=== PATIENT | male | born 1955 | race Caucasian/White ===

== ENCOUNTER → 2020-08-26 | Outpatient (CLI) | payer OTHER ==
[~2020-08-26] MED LIST: ASPIRIN ADULT L81 M1 PO; ATORVASTATIN CA10 M1 PO; DOXYCYCLINE100 M3 PO; GABAPENTIN600 MG PO; GLIMEPIRIDE4 M1 PO; MECLIZINE HCL25 M2 PO; METFORMIN HYD1000 MG PO; NOVOLIN R100 UNIT/1 SQ; PANTOPRAZOLE SO40 MG PO; Percocet 325 MG1 TAB PO; SOLIQUA SC; STOOL SOFTENER100 M3 PO; ULTRAM50 MG PO; VITAMIN D350 MC2 PO; XARELTO10 MG PO
== END | disposition home or self-care (01) ==
LOC: LAB 13:03 → RAD 13:03
PROVIDERS: ATTEND Nurse Practitioner
DX: Z01.818 Encounter for other preprocedural examination (principal)

== ENCOUNTER → 2020-09-04 | Outpatient (CLI) | payer OTHER | END | disposition home or self-care (01) | LOC: COVID19 00:46 | PROVIDERS: ATTEND Podiatrist | DX: Z01.812 Encounter for preprocedural laboratory examination (principal); Z20.828 Contact with and (suspected) exposure to other viral communicable diseases ==

== ENCOUNTER → 2020-09-09 | Day surgery (SDC) | payer OTHER ==
[2020-09-04 13:47] VITALS: BP 128/88
[~2020-09-09] VITALS: Ht 182.8 cm; Wt 127.0 kg
[2020-09-09 06:35] VITALS: BP 160/95
[2020-09-09 10:40] VITALS: BP 138/71
[2020-09-09 10:55] VITALS: BP 128/62
[2020-09-09 11:10] VITALS: BP 126/64
[2020-09-09 11:25] VITALS: BP 125/64
[2020-09-09 11:40] VITALS: BP 128/75
== END ==
LOC: SDC 09-04 13:15
PROVIDERS: ATTEND Podiatrist
DX: M20.31 Hallux varus (acquired), right foot (principal); M19.071 Primary osteoarthritis, right ankle and foot; M24.574 Contracture, right foot; K21.9 Gastro-esophageal reflux disease without esophagitis; E11.40 Type 2 diabetes mellitus with diabetic neuropathy, unspecified; M19.90 Unspecified osteoarthritis, unspecified site; E78.5 Hyperlipidemia, unspecified; Z88.0 Allergy status to penicillin; Z88.5 Allergy status to narcotic agent; Z88.8 Allergy status to other drugs, medicaments and biological substances; Z79.899 Other long term (current) drug therapy

== ENCOUNTER 2020-09-18 16:01 | Emergency (ER) | payer OTHER ==
[~2020-09-18] VITALS: Ht 182.8 cm; Wt 127.0 kg
== END 2020-09-18 19:11 | disposition home or self-care (01) ==
LOC: ED 16:01
DX: G89.18 Other acute postprocedural pain (principal); Z88.0 Allergy status to penicillin; Z88.5 Allergy status to narcotic agent; Z79.899 Other long term (current) drug therapy; Z79.4 Long term (current) use of insulin

== ENCOUNTER → 2020-12-11 | Outpatient (CLI) | payer OTHER | END | disposition home or self-care (01) | LOC: RESCLI 14:39 | PROVIDERS: ATTEND Internal Medicine | DX: E11.42 Type 2 diabetes mellitus with diabetic polyneuropathy (principal); E78.2 Mixed hyperlipidemia; K21.9 Gastro-esophageal reflux disease without esophagitis; E55.9 Vitamin D deficiency, unspecified; I25.10 Atherosclerotic heart disease of native coronary artery without angina pectoris; K59.09 Other constipation; G62.9 Polyneuropathy, unspecified; N25.1 Nephrogenic diabetes insipidus; Z79.4 Long term (current) use of insulin; Z79.899 Other long term (current) drug therapy ==

== ENCOUNTER → 2020-12-14 | Outpatient (CLI) | payer OTHER ==
[2020-12-16 00:06] LABS: TESTOSTERONE FREE, (DIRECT) 3.2 pg/mL (6.6-18.1)
== END | disposition home or self-care (01) ==
LOC: LAB 10:44
PROVIDERS: Hospitalist; ATTEND Internal Medicine
DX: E11.42 Type 2 diabetes mellitus with diabetic polyneuropathy (principal); N52.1 Erectile dysfunction due to diseases classified elsewhere

== ENCOUNTER → 2021-03-25 | Outpatient (CLI) | payer OTHER | END | disposition home or self-care (01) | LOC: RESCLI 01:51 | PROVIDERS: ATTEND Internal Medicine | DX: E11.42 Type 2 diabetes mellitus with diabetic polyneuropathy (principal); E78.2 Mixed hyperlipidemia; K21.9 Gastro-esophageal reflux disease without esophagitis; E55.9 Vitamin D deficiency, unspecified; I25.10 Atherosclerotic heart disease of native coronary artery without angina pectoris; G62.9 Polyneuropathy, unspecified; N52.1 Erectile dysfunction due to diseases classified elsewhere; K59.09 Other constipation; Z79.4 Long term (current) use of insulin; Z79.899 Other long term (current) drug therapy; Z98.890 Other specified postprocedural states ==

== ENCOUNTER → 2021-06-25 | Outpatient (CLI) | payer OTHER | END | disposition home or self-care (01) | LOC: RESCLI 03:59 | PROVIDERS: ATTEND Internal Medicine | DX: R53.83 Other fatigue (principal); R06.83 Snoring; E11.42 Type 2 diabetes mellitus with diabetic polyneuropathy; E78.2 Mixed hyperlipidemia; K21.9 Gastro-esophageal reflux disease without esophagitis; E55.9 Vitamin D deficiency, unspecified; I25.10 Atherosclerotic heart disease of native coronary artery without angina pectoris; G62.9 Polyneuropathy, unspecified; K59.09 Other constipation; R53.82 Chronic fatigue, unspecified; H81.01 Meniere's disease, right ear; G51.0 Bell's palsy; Z79.4 Long term (current) use of insulin; Z98.890 Other specified postprocedural states; Z79.899 Other long term (current) drug therapy ==

== ENCOUNTER → 2022-11-07 | Outpatient (CLI) | payer MEDICARE | END | disposition home or self-care (01) | LOC: RESCLI 08:13 | PROVIDERS: ATTEND Family Medicine | DX: E11.42 Type 2 diabetes mellitus with diabetic polyneuropathy (principal); H81.01 Meniere's disease, right ear; E78.2 Mixed hyperlipidemia; K21.9 Gastro-esophageal reflux disease without esophagitis; G62.9 Polyneuropathy, unspecified; G89.29 Other chronic pain; Z88.0 Allergy status to penicillin; Z88.5 Allergy status to narcotic agent; Z98.890 Other specified postprocedural states; Z79.899 Other long term (current) drug therapy ==

== ENCOUNTER → 2023-11-16 | Outpatient (CLI) | payer MEDICARE | END | disposition home or self-care (01) | LOC: RESCLI 10:43 | PROVIDERS: ATTEND Student in an Organized Health Care Education/Training Program | DX: G89.29 Other chronic pain (principal); H81.01 Meniere's disease, right ear; E11.42 Type 2 diabetes mellitus with diabetic polyneuropathy; E78.2 Mixed hyperlipidemia; K21.9 Gastro-esophageal reflux disease without esophagitis; G62.9 Polyneuropathy, unspecified; I25.10 Atherosclerotic heart disease of native coronary artery without angina pectoris; Z98.890 Other specified postprocedural states; Z88.5 Allergy status to narcotic agent; Z88.0 Allergy status to penicillin; Z79.84 Long term (current) use of oral hypoglycemic drugs; Z79.899 Other long term (current) drug therapy ==